=== PATIENT | male | born 1985 | race Caucasian/White ===

== ENCOUNTER 2024-02-18 17:50 | Emergency (ER) | payer MEDICAID, SELFPAY ==
[2024-02-18] VITALS (7 sets, daily range): BP systolic 139–175; BP diastolic 100–127; PULSE 78–111; RESP 17–22; TEMP 36.6–36.8; O2SAT 92–97; BMI 51.5
--- NOTE | 2024-02-18 18:54 | EKG_ITS ---
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
--- NOTE | 2024-02-18 18:55 | PD.EDRME ---
Rapid Medical Screening Exam [facility] Arrival date/time: 02/18/24 17:50 CC: Headache hypertension HPI ongoing for years but worse in the last couple week states he continues to have his doses adjusted by the [facility] but continues to wake up each morning with a bad headache and has sleep apnea. Currently patient denies chest pain shortness of breath or difficulty breathing. Patient is morbidly obese. Chief Complaint: Headache Time Seen by Provider: 02/18/24 18:54 Vital signs: Vital Signs Temperature 98 F 02/18/24 17:58 Pulse Rate 111 H 02/18/24 17:58 Respiratory Rate 19 02/18/24 17:58 Blood Pressure 167/117 H 02/18/24 17:58 Pulse Oximetry (%) 96 02/18/24 17:58 Oxygen Delivery Method Room Air 02/18/24 17:58
[2024-02-18 19:29] LABS: Basophils # (Auto) 0.1 Thou/mm3 (0.0-0.2); Basophils % (Auto) 1 % (0-2.5); Eosinophils # (Auto) 0.2 Thou/mm3 (0.0-0.5); Eosinophils % (Auto) 2 % (0-10); Hematocrit 47.3 % (41.0-53.0); Hemoglobin 16.2 g/dL (13.5-16.0); Immature Granulocytes % (Auto) 1 % (0-0); Immature Granulocytes Auto 0.09 Thou/mm3 (0.00-0.00); Lymphocytes # (Auto) 2.7 Thou/mm3 (1.0-4.8); Lymphocytes % (Auto) 25 % (10-50); Mean Corpuscular HGB Conc 34.2 g/dl (31.0-37.0); Mean Corpuscular Hemoglobin 29.3 pg (25.0-35.0); Mean Corpuscular Volume 86 fL (80-100); Monocytes # (Auto) 0.8 Thou/mm3 (0.0-0.8); Monocytes % (Auto) 8 % (0-12); Neutrophils % (Auto) 64 % (37-80); Nucleated Red Blood Cell % 0 /100 WBC (0); Platelet Count 266 Thou/mm3 (140-440); RDW Standard Deviation 41.1 fL (35.1-43.9); Red Blood Count 5.53 Miln/mm3 (4.50-5.90); White Blood Count 10.9 Thou/mm3 (3.8-10.6)
[2024-02-18 19:49] LABS: Alanine Aminotransferase 34 U/L (10-49); Albumin, Serum 4.7 gm/dL (3.5-5.0); Albumin/Globulin Ratio 1.7 (1.2-2.2); Alkaline Phosphatase 75 U/L (46-116); Anion Gap 7 (7-16); Aspartate Amino Transferase 18 U/L (0-34); BUN/Creatinine Ratio 15 Ratio (12-20); Bilirubin,Total 0.4 mg/dL (0.3-1.2); Blood Urea Nitrogen 15 mg/dL (9-23); Calcium 9.7 mg/dL (8.3-10.6); Calcium (Corrected) 9.7 mg/dL (8.5-10.1); Carbon Dioxide 26.1 mMol/L (20.0-31.0); Chloride 106 mMol/L (98-107); Estimated Creatinine Clearance 159.1 mL/min (>60); Globulin 2.8 gm/dL (2.3-3.5); Glucose 105 mg/dL (74-106); Osmolality,Calculated 278 (275-295); Potassium 3.8 mMol/L (3.4-5.1); Sodium 139 mMol/L (136-145); Total Protein 7.5 gm/dL (5.7-8.2); eGFR > 60 See Note
[2024-02-18 20:05] LABS: Collection Type, Urine Clean Catch
[2024-02-18] MEDS: cloNIDine HCL 0.1 MG TABLET 0.2 MG PO (20:08)
[2024-02-18] MEDS: hydrALAZINE HCL 25 MG TABLET PO (20:09)
--- NOTE | 2024-02-18 20:12 | PC.NURSE ---
called for pt from lobby/outside, no answerx1 @ 2012
--- NOTE | 2024-02-18 20:17 | EDNOTE_ITS ---
ED General RME/HPI General Chief complaint: Headache Stated complaint: THINKS HE MAY HAVE HIGH B/P Time Seen by Provider: 02/18/24 18:54 Arrival date/time: 02/18/24 17:50 CC: Headache hypertension HPI ongoing for several years, the patient that he has worsening in the past week or so states he is on CPAP wakes up in the morning with a bad headache. Patient states his PCP keeps adjusting his medicines but continues to have high blood pressure. Patient denies fever chills chest pain shortness of breath difficulty breathing. RME / HPI RME / HPI narrative: 02/18/24 17:50 CC: Headache hypertension HPI ongoing for years but worse in the last couple week states he continues to have his doses adjusted by the [facility] but continues to wake up each morning with a bad headache and has sleep apnea. Currently patient denies chest pain shortness of breath or difficulty breathing. Patient is morbidly obese. Related Data Previous Rx's ?Medication ?Instructions ?Recorded ibuprofen 800 mg tablet 800 mg PO TID PRN pain #30 tabs 07/20/22 lisinopril 30 mg tablet 30 mg PO QDAY #30 tabs 02/18/24 Allergies Allergy/AdvReac Type Severity Reaction Status Date / Time No Known Allergies Allergy Verified 02/18/24 17:52 Review of Systems Review of Systems Narrative Review of Systems: GEN: No fever, no chills, no weight loss EYES: No discharge, no visual changes, no pain HEENT: No ear pain, no congestion, no sore throat PULM: No shortness of breath, no cough, no congestion CV: No chest pain, no dyspnea on exertion, no palpitations GI: No nausea, no vomiting, no diarrhea, no pain, no constipation : No frequency, no urgency, no dysuria MUSC/SKEL: No joint pain, no back pain SKIN: No rash PSYCH: No hallucinations, no depression HEME/LYMPH: No easy bleeding or bruising tendencies NEURO: No weakness, no headache Past Medical History Social History SMOKING STATUS: Never smoker ED Exam Narrative Physical exam: [General: Morbidly obese not in any acute distress Head normocephalic HEENT: Within acceptable limits Neck is supple nontender Chest equal chest rise nontender to palpation Respiratory: Clear to auscultation no wheezes crackles or rubs CV: Rate rhythm is regular no murmurs rubs or clicks Abdomen is grossly distended secondary to body habitus soft nontender no masses positive bowel sounds all 4 quadrants Back: No CVA tenderness no spinous process tenderness from cervical spine thoracic and lumbar spine Skin: Intact no petechiae rash induration ulceration or crepitus Extremities: Moving all extremities against resistance cap refill less than 2 seconds neurosensory intact Neuro: Awake alert oriented x3 Glascow coma 15 no focal deficits] Course Quality Measures none Orders Category Date Time Status EKG (ED ONLY) *Do not use* NOW Care 02/18/24 18:54 Completed EKG (ED Only) Stat Exams 02/18/24 18:54 Draft CBC Stat Lab 02/18/24 19:04 Completed CMP [Comprehensive Metabolic Panel] Stat Lab 02/18/24 19:04 Completed Drug Screen,Urine Stat Lab 02/18/24 19:55 Completed Urinalysis Stat Lab 02/18/24 19:55 Completed cloNIDine HCL [Catapres] Med 02/18/24 19:57 Discontinued 0.2 mg PO X1 ONE cloNIDine HCL [Catapres] Med 02/18/24 21:02 Discontinued 0.2 mg PO X1 ONE hydrALAZINE HCL [Apresoline] Med 02/18/24 19:57 Discontinued 25 mg PO X1 ONE Vital Signs Vital signs: Vital Signs Temperature 98 F 02/18/24 17:58 Pulse Rate 111 H 02/18/24 17:58 Respiratory Rate 19 02/18/24 17:58 Blood Pressure 167/117 H 02/18/24 17:58 Pulse Oximetry (%) 96 02/18/24 17:58 Oxygen Delivery Method Room Air 02/18/24 17:58 [facility] Patient data External records reviewed:: [facility] previous records Clinical information provided by:: patient Social determinants that could affect healthcare access:: none Patient has the following chronic illnesses:: Hypertension morbid obesity How is presenting disease/condition affected by chronic disease/condition?: e xacerbated by Evaluation data The following diagnostics were reviewed and interpreted by me:: lab results and EKG tracing(s) Lab and/or radiology exams considered but not ordered:: EKG performed at 1900 shows ventricular rate of 106 [place] interval 167 QRS of 85 QTc of [address] segment changes there is a baseline wander in leads I and II. CBC shows no acute leukocytosis anemia thrombocytopenia CMP shows no acute electrolyte imbalances renal impairment transaminitis or T. bili elevation Urine shows 2+ protein levels. Interpretation Summary: Patient has no signs of endorgan damage blood pressure is decreased to 139/100 at this time patient will be discharged home Medications Medications considered but not ordered:: None Medication administrations:: Medication Administration History Discontinued Medications Clonidine (Clonidine Hcl 0.1 Mg Tablet) 0.2 mg PO X1 ONE Stop: 02/18/24 19:58 Last Admin: 02/18/24 20:08 Dose: 0.2 mg Documented By: SF Clonidine (Clonidine Hcl 0.1 Mg Tablet) 0.2 mg PO X1 ONE Stop: 02/18/24 21:03 Last Admin: 02/18/24 21:14 Dose: Not Given Documented By: KD Non-Admin Reason: Discontinued Hydralazine HCl (Hydralazine Hcl 25 Mg Tablet) 25 mg PO X1 ONE Stop: 02/18/24 19:58 Last Admin: 02/18/24 20:09 Dose: 25 mg Documented By: AC None Consultations Consultation(s) initiated? (list below): No Diagnosis Differential Diagnosis ED Complaint MDM: Hypertension hypertensive urgency hypertensive emergency Most likely diagnosis given after review of the tests above:: Hypertension morbid obesity Admission Indicated Admission indicated?: not indicated Explain why admission is indicated or not indicated:: Stable for outpatient follow-up Admission Request Was there a request for admission?: No Disposition Plan Disposition Plan: Discharge Discharge Attestation Discharge Attestation: The patient and all family members were given an opportunity to ask questions and understood the discharge instructions. Discharge instructions specifically effects, indications for sooner follow up or return to the emergency department, and the expected course of current diagnosis. Patient condition: Stable Medical Decision Making Differential Diagnosis Differential Diagnosis: Hypertension hypertensive urgency hypertensive emergency Lab Data 02/18/24 19:04 02/18/24 19:04 Labs: Lab Results 02/18/24 02/18/24 Range/Units 19:04 19:55 WBC 10.9 H (3.8-10.6) Thou/mm3 RBC 5.53 (4.50-5.90) Miln/mm3 Hgb 16.2 H (13.5-16.0) g/dL Hct 47.3 (41.0-53.0) % MCV 86 (80-100) fL MCH 29.3 (25.0-35.0) pg MCHC 34.2 (31.0-37.0) g/dl RDW Std Deviation 41.1 (35.1-43.9) fL Plt Count 266 (140-440) Thou/mm3 Neut % (Auto) 64 (37-80) % Lymph % (Auto) 25 (10-50) % [place] % (Auto) 8 (0-12) % Eos % (Auto) 2 (0-10) % Baso % (Auto) 1 (0-2.5) % Neut # (Auto) 7.0 (1.8-7.7) Thou/mm3 Lymph # (Auto) 2.7 (1.0-4.8) Thou/mm3 [place] # (Auto) 0.8 (0.0-0.8) Thou/mm3 Eos # (Auto) 0.2 (0.0-0.5) Thou/mm3 Baso # (Auto) 0.1 (0.0-0.2) Thou/mm3 Immature Gran # (Auto) 0.09 H (0.00-0.00) Thou/mm3 Absolute Nucleated RBC 0.00 (0.00-0.00) Thou/mm3 Immature Gran % 1 H (0-0) % Nucleated RBC % 0 (0) /100 WBC Sodium 139 (136-145) mMol/L Potassium 3.8 (3.4-5.1) mMol/L Chloride 106 (98-107) mMol/L Carbon Dioxide 26.1 (20.0-31.0) mMol/L Anion Gap 7 (7-16) BUN 15 (9-23) mg/dL Creatinine 1.0 (0.6-1.3) mg/dL Estim Creat Clear Calc 159.1 (>60) mL/min eGFR > 60 (60 - ) See Note BUN/Creatinine Ratio 15 (12-20) Ratio Glucose 105 (74-106) mg/dL Calculated Osmolality 278 (275-295) Calcium 9.7 (8.3-10.6) mg/dL Corrected Calcium 9.7 (8.5-10.1) mg/dL Total Bilirubin 0.4 (0.3-1.2) mg/dL AST 18 (0-34) U/L ALT 34 (10-49) U/L Alkaline Phosphatase 75 (46-116) U/L Total Protein 7.5 (5.7-8.2) gm/dL Albumin 4.7 (3.5-5.0) gm/dL Globulin 2.8 (2.3-3.5) gm/dL Albumin/Globulin Ratio 1.7 (1.2-2.2) Ur Collection Type Clean Catch Urine Color Yellow (Lt Yel-Yel) Urine Clarity Clear (Clear/Hazy) Urine pH 6.0 (5.0-7.0) Ur Specific [place] 1.032 (1.001-1.035) Urine Protein 1+ A (Neg - Trace) Urine Glucose (UA) Negative (Negative) Urine Ketones Negative (Negative) Urine Blood 1+ A (Negative) Urine Nitrite Negative (Negative) Urine Bilirubin Negative (Negative) Urine Urobilinogen (Auto) Negative (0.0-1.0) mg/dL Ur Leukocyte Esterase Positive (Negative) Urine RBC 6 H (0-3) /hpf Urine WBC 6 H (0-5) /hpf Ur Squamous Epith Cells 1 (0-5) /hpf Urine Bacteria None (None) Urine Opiates Screen Negative (Negative) Urine Fentanyl Screen Negative (Negative) Ur Barbiturates Screen Negative (Negative) U Amphetamin/Meth Scrn Negative (Negative) U Benzodiazepines Scrn Negative (Negative) U Cocaine Metab Screen Negative (Negative) U Marijuana (THC) Screen Negative (Negative) Discharge Plan Plan Patient Disposition: HOME (Self Care) Patient condition on transfer: Stable Prescriptions/Referrals Prescriptions/Med Rec: New lisinopril 30 mg tablet 30 mg PO QDAY Qty: 30 0RF No Action ibuprofen 800 mg tablet 800 mg PO TID PRN (Reason: pain) Qty: 30 0RF Referrals: Jamison Gould MD [Primary Care Provider] - In 1 week Problem List Clinical Impression: Hypertension Patient/Caregiver Discharge Instructions Education Materials: Blood Pressure Check Steps Additional Instructions: Take the medication as prescribed follow-up with your primary care provider for further adjustments on your hypertension medications you may want to consider referral to [facility] for more complex aggressive hypertension management. Print Language: Amharic Stand Alone Forms: Cynthia Award Info., Patient Portal Info Letter, Work/School Release PA/SUPERVISOR ROUGH END Supervising Physician PA/SUPERVISOR ROUGH END Supervising Physician: Vicente Shoemaker ENP
[2024-02-18 20:30] LABS: Bilirubin,Urine Negative (Negative); Blood,Urine 1+ (Negative); Clarity,Urine Clear (Clear/Hazy); Color,Urine Yellow (Lt Yel-Yel); Glucose, Urine Negative (Negative); Ketones,Urine Negative (Negative); Leukocyte Esterase,Urine Positive (Negative); Nitrite,Urine Negative (Negative); Protein,Urine 1+ (Neg - Trace); RBC,Urine 6 /hpf (0-3); Specific Gravity,Urine 1.032 (1.001-1.035); Squamous Epithelial Cell,Urine 1 /hpf (0-5); Urobilinogen,Urine Negative mg/dL (0.0-1.0); WBC,Urine 6 /hpf (0-5)
[2024-02-18 20:40] LABS: Amphetamine/Methamp Scrn,U Negative (Negative); Barbiturate Screen,Urine Negative (Negative); Benzodiazepines Screen,Urine Negative (Negative); Benzoylecgonine Screen, Ur Negative (Negative); Fentanyl Screen,Urine Negative (Negative); Opiate Screen,Urine Negative (Negative); THC Screen,Urine Negative (Negative)
== END 2024-02-18 22:03 | disposition home or self-care (01) ==
PROVIDERS: Registered Nurse General Practice; Emergency Provider Emergency Medicine; PCP Family Medicine
DX: I10 Essential (primary) hypertension (principal); R00.0 Tachycardia, unspecified
CPT/HCPCS: 36415; 80053; 80307; 81001; 85025; 93005; 99283; A9270

== ENCOUNTER 2024-04-15 01:16 | Emergency (ER) | payer MEDICAID, SELFPAY ==
[2024-04-15 01:43] VITALS: BP 167/120; PULSE 98; RESP 20; TEMP 36.6; O2SAT 99
[2024-04-15 01:44] VITALS: BMI 51.5
--- NOTE | 2024-04-15 01:51 | XR_ITS ---
Examination: Venous duplex lower extremity sonogram, bilateral. Date and time of exam: April 15, 2024 0207 hrs. Indications: Bilateral leg swelling and pain beginning 3 days ago Technique: Multiple sonographic images of the deep venous system have been obtained. B-mode/2-D grayscale imaging of vascular structures and Doppler spectral analysis (waveforms) and color performed Both legs are examined. Findings: Right lower extremity deep venous system demonstrates no convincing findings of deep vein thrombus Positive for nonocclusive thrombus in the distal left superficial femoral vein which is noncompressive with reduced color flow Impression: Positive for nonocclusive thrombus in the left distal superficial femoral vein
--- NOTE | 2024-04-15 01:52 | PD.EDRME ---
Rapid Medical Screening Exam RME Arrival date/time: 04/15/24 01:16 38-year-old male past medical history of hypertension and according to patient takes water pill presents emergency department complaining of bilateral lower extremity edema and pain that starts at his feet and travels up to his calf and thigh. Chief Complaint: Extremity Problem,Nontraumatic Time Seen by Provider: 04/15/24 01:18 Vital signs: Vital Signs Temperature 97.8 F 04/15/24 01:43 Pulse Rate 98 04/15/24 01:43 Respiratory Rate 20 04/15/24 01:43 Blood Pressure 167/120 H 04/15/24 01:43 Pulse Oximetry (%) 99 04/15/24 01:43 Oxygen Delivery Method Room Air 04/15/24 01:43 Vital signs reviewed by provider: Yes
[2024-04-15 02:43] VITALS: BP 167/120; PULSE 98
[2024-04-15] MEDS: hydrALAZINE HCL 25 MG TABLET PO (02:43)
[2024-04-15] MEDS: ACETAMINOPHEN 500 MG TABLET 1000 MG PO (02:43)
[2024-04-15 03:50] VITALS: BP 162/111; BP 168/105; PULSE 96
[2024-04-15 04:07] VITALS: BP 168/105; PULSE 96
[2024-04-15] MEDS: cloNIDine HCL 0.1 MG TABLET 0.2 MG PO (04:07)
--- NOTE | 2024-04-15 04:15 | PRELIM_ITS ---
Bilateral lower extremity venous Doppler ultrasound with wave Doppler spectral analysis. April 15, 2024 at 0207 hours Clinical history: Rule out DVT. Technique: Duplex scan of the bilateral lower extr emity deep venous systems was performed utilizing 2D grayscale imaging, Doppler spectral analysis and color flow Doppler and with compression. Comparison: No prior study is available for comparison. Fi ndings:The evaluation is limited due to body habitus. Cr scale, color flow and spectral Doppler sameer luation of the lower extremity deep veins was performed.Right: The common femoral, superficial femora l and popliteal veins are patent and compressible. Normal respiratory variation is noted. The calf ve ins to the extent visualized are patent. There is no evidence of occlusive or nonocclusive thrombus. The great saphenous vein is patent at the level of the saphenofemoral junction.Left: There is nonoccl usive deep vein thrombosis in the left distal superficial femoral vein. The common femoral, proximal /mid superficial femoral and popliteal veins are patent and compressible. The posterior tibial and pe roneal veins are patent. The great saphenous vein is patent at the level of the saphenofemoral juncti on.Impression:Limited evaluation as described. Nonocclusive deep vein thrombosis in the left distal s uperficial femoral vein.No sonographic evidence of deep venous thrombosis in the right lower extremit y.Discussion Details: Results verbally communicated to : John Law, Nurse Practitioner at 04:09 AM 04/15/2024 Report Electronically Signed By: Alex Tejeda 04/15/2024 4:14:54 AM [EST]
[2024-04-15 04:58] LABS: Basophils # (Auto) 0.1 Thou/mm3 (0.0-0.2); Basophils % (Auto) 1 % (0-2.5); Eosinophils # (Auto) 0.4 Thou/mm3 (0.0-0.5); Eosinophils % (Auto) 4 % (0-10); Hematocrit 43.2 % (41.0-53.0); Hemoglobin 14.5 g/dL (13.5-16.0); Immature Granulocytes % (Auto) 0 % (0-0); Immature Granulocytes Auto 0.03 Thou/mm3 (0.00-0.00); Lymphocytes # (Auto) 3.1 Thou/mm3 (1.0-4.8); Lymphocytes % (Auto) 31 % (10-50); Mean Corpuscular HGB Conc 33.6 g/dl (31.0-37.0); Mean Corpuscular Hemoglobin 28.9 pg (25.0-35.0); Mean Corpuscular Volume 86 fL (80-100); Monocytes # (Auto) 0.8 Thou/mm3 (0.0-0.8); Monocytes % (Auto) 8 % (0-12); Neutrophils # (Auto) 5.7 Thou/mm3 (1.8-7.7); Neutrophils % (Auto) 57 % (37-80); Nucleated Red Blood Cell % 0 /100 WBC (0); Platelet Count 234 Thou/mm3 (140-440); RDW Standard Deviation 42.9 fL (35.1-43.9); Red Blood Count 5.01 Miln/mm3 (4.50-5.90); White Blood Count 10.1 Thou/mm3 (3.8-10.6)
[2024-04-15 05:07] LABS: INR 1.1 (0.9-1.3); Prothrombin Time 11.5 Seconds (9.0-12.2)
[2024-04-15 05:13] LABS: Alanine Aminotransferase 52 U/L (10-49); Albumin, Serum 4.5 gm/dL (3.5-5.0); Albumin/Globulin Ratio 1.7 (1.2-2.2); Alkaline Phosphatase 80 U/L (46-116); Anion Gap 8 (7-16); Aspartate Amino Transferase 35 U/L (0-34); BUN/Creatinine Ratio 11 Ratio (12-20); Bilirubin,Total 0.6 mg/dL (0.3-1.2); Blood Urea Nitrogen 13 mg/dL (9-23); Calcium 9.3 mg/dL (8.3-10.6); Calcium (Corrected) 9.3 mg/dL (8.5-10.1); Carbon Dioxide 26.6 mMol/L (20.0-31.0); Chloride 106 mMol/L (98-107); Creatinine (Component) 1.2 mg/dL (0.6-1.3); Estimated Creatinine Clearance 132.6 mL/min (>60); Globulin 2.7 gm/dL (2.3-3.5); Glucose 124 mg/dL (74-106); Osmolality,Calculated 282 (275-295); Potassium 3.9 mMol/L (3.4-5.1); Sodium 141 mMol/L (136-145); Total Protein 7.2 gm/dL (5.7-8.2); eGFR > 60 See Note
--- NOTE | 2024-04-15 05:14 | EDNOTE_ITS ---
ED Extremity Problem RME/HPI General Chief complaint: Extremity Problem,Nontraumatic Stated complaint: Legs/Feet Swollen Leg Pain x3 days Time Seen by Provider: 04/15/24 01:18 Source: patient Arrival date/time: 04/15/24 01:16 38-year-old male past medical history of hypertension and according to patient takes water pill presents emergency department complaining of bilateral lower extremity edema and pain that starts at his feet and travels up to his calf and thigh that has worsened this last 3 days. Patient denies any fever, chills, recent travel, prolonged immobilization, recent surgery, rectal bleeding, hematuria, hematemesis, or any other associated symptom. Mode of arrival: ambulatory Limitations: no limitations RME / HPI RME / HPI Narrative: 04/15/24 01:16 38-year-old male past medical history of hypertension and according to patient takes water pill presents emergency department complaining of bilateral lower extremity edema and pain that starts at his feet and travels up to his calf and thigh. Related Data Previous Rx's ?Medication ?Instructions ?Recorded ibuprofen 800 mg tablet 800 mg PO TID PRN pain #30 tabs 07/20/22 lisinopril 30 mg tablet 30 mg PO QDAY #30 tabs 02/18/24 apixaban 5 mg tablet 10 mg (2 x 5 mg) PO BID 7 days #30 04/15/24 tabs Allergies Allergy/AdvReac Type Severity Reaction Status Date / Time No Known Allergies Allergy Verified 02/18/24 17:52 Review of Systems Review of Systems Systems Reviewed: All systems reviewed, normal except as documented Constitutional Constitutional: Denies body ache(s), Denies chills and Denies fever(s) Eyes Eyes: Denies change in vision ENT Ears, Nose, Mouth, and Throat: Denies disequilibrium, Denies dizziness, Denies sore throat and Denies vertigo Cardiovascular Cardiovascular: Denies chest pain, Denies dyspnea and Reports leg edema Respiratory Respiratory: Denies chest congestion, Denies cough and Denies dyspnea Gastrointestinal Gastrointestinal: Denies abdominal pain, Denies nausea and Denies vomiting Musculoskeletal Musculoskeletal: Denies abnormal gait, Denies arthralgias and Reports radiating pain into limb Integumentary/Breasts Skin/Breast: Denies erythema, Denies rash and Denies wounds Neurologic Neurologic: Denies abnormal gait, Denies disequilibrium, Denies dizziness and Denies vertigo Past Medical History Past Medical History CARDIAC: Negative Congestive Heart Failure RESPIRATORY: Negative Chronic Obstructive Pulmonary Disease (COPD) GENITOURINARY: Negative Renal Disease ENDOCRINE: Negative Diabetes Mellitus Type 1 or Diabetes Mellitus Type 2 Social History SMOKING STATUS: Former smoker ED Exam General Limitations: Present no limitations General appearance: Present alert and in no apparent distress Head Head exam: Present atraumatic Eye Eye exam: Present normal appearance, PERRL and EOMI ENT ENT exam: Present normal exam, normal oropharynx and mucous membranes moist Neck Neck exam: Present normal inspection, full ROM and trachea midline Chest Chest inspection: Present normal inspection and symmetric chest wall rise Respiratory Respiratory exam: Present normal lung sounds bilaterally Cardiovascular Cardiovascular exam: Present regular rate, normal rhythm and normal heart sounds Abdominal Exam Abdominal exam: Present soft and normal bowel sounds Extremities Exam Extremities exam: Present normal inspection and full ROM Expanded Lower Extremity Exam Leg image: 2 1. 2+ pitting edema 2. 1+ pitting edema Back Exam Back exam: Present normal inspection and full ROM Neurological Exam Neurological exam: Present alert, oriented X3 and CN II-XII intact Psychiatric Psychiatric exam: Present normal affect and normal mood Skin Skin exam: Present warm, dry, intact and normal color Course Quality Measures none Orders Category Date Time Status US venous doppler LE BI Stat Exams 04/15/24 01:51 Taken CBC Stat Lab 04/15/24 04:48 Completed CMP [Comprehensive Metabolic Panel] Stat Lab 04/15/24 04:48 Completed PT [Prothrombin Time with INR] Stat Lab 04/15/24 04:48 Completed PTT [Partial Thromboplastin Time] Stat Lab 04/15/24 04:48 Completed Acetaminophen Tab [Tylenol ES Tab] Med 04/15/24 01:55 Discontinued 1,000 mg PO X1 ONE cloNIDine HCL [Catapres] Med 04/15/24 03:59 Discontinued 0.2 mg PO X1 ONE hydrALAZINE HCL [Apresoline] Med 04/15/24 01:52 Discontinued 25 mg PO X1 ONE Vital Signs Vital signs: Vital Signs Temperature 97.8 F 04/15/24 01:43 Pulse Rate 98 04/15/24 01:43 Respiratory Rate 20 04/15/24 01:43 Blood Pressure 167/120 H 04/15/24 01:43 Pulse Oximetry (%) 99 04/15/24 01:43 Oxygen Delivery Method Room Air 04/15/24 01:43 99% room air within normal limits Extremity Problem MDM Narrative MDM Narrative:: 38-year-old male past medical history of hypertension and according to patient takes water pill presents emergency department complaining of bilateral lower extremity edema and pain that starts at his feet and travels up to his calf and thigh that has worsened this last 3 days. Patient denies any fever, chills, recent travel, prolonged immobilization, recent surgery, rectal bleeding, hematuria, hematemesis, or any other associated symptom. CBC was unremarkable for any leukocytosis or anemia. Coagulation studies within normal limits. CMP was unremarkable for any elevated LFTs or elevated BUN and creatinine. Ultrasound bilateral lower extremities impression nonocclusive deep vein thrombosis in left distal superficial femoral vein. No sonographic evidence of deep venous thrombosis in right lower extremity. Patient's previous ultrasounds from previous visits were reviewed with no previous history of DVT. Patient will be treated for acute DVT with Eliquis and was given strict instructions to have close follow-up with primary care provider for refill of Eliquis and continued management. Patient verbalized understanding of instructions. Baseline coagulation studies, kidney function, and liver function studies obtained. Patient data External records reviewed:: [facility] previous records Clinical information provided by:: patient Social determinants that could affect healthcare access:: none Patient has the following chronic illnesses:: See chart How is presenting disease/condition affected by chronic disease/condition?: u neffected by Evaluation data The following diagnostics were reviewed and interpreted by me:: lab results and radiology exam(s) Lab and/or radiology exams considered but not ordered:: Ordered Interpretation Summary: Interpreted by me Medications / Prescriptions Medications or Prescriptions considered but not ordered:: Ordered Medication administrations:: Medication Administration History Discontinued Medications Acetaminophen (Acetaminophen 500 Mg Tablet) 1,000 mg PO X1 ONE Stop: 04/15/24 01:56 Last Admin: 04/15/24 02:43 Dose: 1,000 mg Documented By: RADHAL Clonidine (Clonidine Hcl 0.1 Mg Tablet) 0.2 mg PO X1 ONE Stop: 04/15/24 04:00 Last Admin: 04/15/24 04:07 Dose: 0.2 mg Documented By: MARK Hydralazine HCl (Hydralazine Hcl 25 Mg Tablet) 25 mg PO X1 ONE Stop: 04/15/24 01:53 Last Admin: 04/15/24 02:43 Dose: 25 mg Documented By: CVL Given Consultations Consultation(s) initiated? (list below): No Diagnosis Extremity Problem Differential Diagnosis: lower extremity edema and deep vein thrombosis of lower extremity Most likely diagnosis given after review of the tests above:: Deep vein thrombosis of lower extremity Admission Indicated Admission indicated?: not indicated Admission Request Was there a request for admission?: No Disposition Plan Disposition Plan: Discharge Discharge Attestation Discharge Attestation: The patient and all family members were given an opportunity to ask questions and understood the discharge instructions. Discharge instructions specifically effects, indications for sooner follow up or return to the emergency department, and the expected course of current diagnosis. Patient condition: Stable Discharge Plan Plan Patient Disposition: HOME (Self Care) Disposition Comment: Stable Prescriptions/Referrals Prescriptions/Med Rec: New apixaban 5 mg tablet 10 mg PO BID 7 Days Qty: 30 0RF Rx Instructions: Take 10 mg orally twice a day for 7 days, then 5 mg orally twice a day. No Action ibuprofen 800 mg tablet 800 mg PO TID PRN (Reason: pain) Qty: 30 0RF lisinopril 30 mg tablet 30 mg PO QDAY Qty: 30 0RF Referrals: Jamison Gould MD [Primary Care Provider] - In 1 week Problem List Clinical Impression: Deep vein thrombosis of lower extremity Patient/Caregiver Discharge Instructions Discharge Activity: activity as tolerated Education Materials: Low-Salt Choices, DVT Dc, ED Deep Vein Thrombosis (DVT) Additional Instructions: You have a left lower leg deep vein thrombosis. Take medication as prescribed. You have been prescribed Eliquis 10 mg orally twice a day for 7 days, then 5 mg orally twice a day. You will need close follow-up with your primary care provider for refill of Eliquis and management. Monitor blood pressure readings at home and take diary with recordings to primary care provider on follow-up for possible increase in blood pressure medication. Return immediately to the emergency department for any rectal bleeding, vomiting blood, or any worsening symptoms. Print Language: Polish Stand Alone Forms: [employer] Award Info., Work/School Release, Patient Portal Info Letter PA/KAYLIE Supervising Physician MAYA/KAYLIE Supervising Physician: Dr. Pappas
[2024-04-15 05:47] VITALS: BP 176/93; PULSE 90; RESP 16; TEMP 36.6; O2SAT 99
== END 2024-04-15 05:48 | disposition home or self-care (01) ==
PROVIDERS: Emergency Provider Emergency Medicine; PCP Family Medicine
DX: I82.412 Acute embolism and thrombosis of left femoral vein (principal); I10 Essential (primary) hypertension
CPT/HCPCS: 36415; 80053; 85025; 85610; 85730; 93970; 99284; A9270

== ENCOUNTER 2024-05-17 19:21 | Emergency (ER) | payer MEDICAID, SELFPAY ==
[2024-05-17 19:21] VITALS: BMI 50.2
[2024-05-17 19:28] VITALS: BP 132/93; PULSE 99; RESP 19; TEMP 36.8; O2SAT 97
--- NOTE | 2024-05-17 19:37 | XR_ITS ---
Examination: CT abdomen with intravenous contrast CT pelvis with intravenous contrast 2-D coronal reconstructions 2-D sagittal reconstructions Date and time of exam:May 18, 2024 0032 hrs. Comparison: October 14, 2022 Indications: Onset abdominal pain beginning 4 days ago. CTDI: vol (mGy) 20.8 DLP: (mGycm) 1408 Technique: Multiple axial sections of the abdomen and pelvis have been obtained. 64 slice high-resolution scanner used. 3 mm axial sections have been obtained, post intravenous injection 60 cc [id number] 2-D sagittal, coronal reconstructions obtained. Low dose protocols were performed. One or more of the following dose reduction techniques were used; automated exposure control, adjustment of the mA and/or KV according to patient size, use of iterative reconstruction technique. Findings: Diffuse fatty infiltration throughout the liver, no focal liver or splenic lesions Absent gallbladder No pancreatic or adrenal mass No renal or ureteral calculi. Mildly fluid distended colon and small bowel No pericecal inflammatory change No bowel obstruction Contracted urinary bladder No prostatomegaly Impression: Mild colonic small bowel ileus
--- NOTE | 2024-05-17 19:37 | EKG_ITS ---
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
--- NOTE | 2024-05-17 19:39 | PD.EDNV ---
Nausea/Vomit./Diarrhea-E/HPI General Chief complaint: Nausea/Vomiting/Diarrhea Stated complaint: ABD PAIN X4DAYS Time Seen by Provider: 05/17/24 19:32 Arrival date/time: 05/17/24 19:21 RME / HPI RME / HPI Narrative: 38-year-old male patient with significant history of hypertension, status postcholecystectomy in the past, came in for evaluation regarding upper abdominal pain. Onset of symptoms for the last 3 days as diarrhea, upper abdominal pain, burping a lot, nauseous, severity moderate. Patient denies any blood in the diarrhea. Denies any other complaints. No medications taken prior to arrival. Related Data Previous Rx's ?Medication ?Instructions ?Recorded ibuprofen 800 mg tablet 800 mg PO TID PRN pain #30 tabs 07/20/22 lisinopril 30 mg tablet 30 mg PO QDAY #30 tabs 02/18/24 Allergies Allergy/AdvReac Type Severity Reaction Status Date / Time No Known Allergies Allergy Verified 02/18/24 17:52 Review of Systems Review of Systems Narrative Review of Systems: Review of system reviewed and within normal limits except mentioned in HPI ED Exam Narrative Physical exam: VITAL SIGNS: Reviewed. GENERAL APPEARANCE: Alert and interactive, follows commands, no acute distress, HEAD AND FACE: Non-traumatic. ENT: PERRL, pink conjunctivitis, eyelid no trauma, Mucous membrane moist. NECK: Supple, nontender, no nuchal rigidity. CHEST: No tenderness, no crepitus, no paradoxical movement, no retractions. LUNGS: Clear, well ventilated, symmetric, no rales, no wheezing, no ronchi, no stridor, good breath sounds bilaterally. HEART: Regular rate, regular rhythm, no murmur, no gallops. ABDOMEN: Soft, positive bowel sounds, nondistended, no guarding, epigastric tenderness no rebound, no masses, RECTAL: Deferred. GENITAL: Deferred. NEUROLOGICAL: Gross motor function intact sensory function intact, Appropriate for age. MUSCULOSKELETAL: low back nontender, full range of motion. EXTREMITIES: Nontender, full range of motion. SKIN: Color pink, dry, no rash, no lacerations, no abrasions, no contusions. LYMPHATICS: Deferred. Course Orders Category Date Time Status CT Screening NOW Care 05/17/24 19:37 Active EKG (ED ONLY) *Do not use* NOW Care 05/17/24 19:[address] abdomen pelvis w con Stat Exams 05/17/24 19:37 Ordered EKG (ED Only) Stat Exams 05/17/24 19:37 Ordered CBC Stat Lab 05/17/24 19:37 Ordered Comprehensive Metabolic Panel Stat Lab 05/17/24 19:37 Ordered Drug Screen,Urine Stat Lab 05/17/24 19:37 Ordered Lipase Stat Lab 05/17/24 19:37 Ordered Partial Thromboplastin Time Stat Lab 05/17/24 19:37 Ordered Prothrombin Time with INR Stat Lab 05/17/24 19:37 Ordered UA, C/S IF [Urinalysis, C/S if Indicated] Stat Lab 05/17/24 19:37 Ordered Famotidine Inj [Pepcid Inj] Med 05/17/24 19:37 Once 20 mg IVP X1 ONE Ketorolac Inj [Toradol Inj] Med 05/17/24 19:38 Once 30 mg IVP X1 ONE Metoclopramide Inj [Reglan Inj] Med 05/17/24 19:37 Once 10 mg IVP X1 ONE Sodium Chloride 0.9% 1000 ml [Ns] 1,000 ml Med 05/17/24 19:38 Active IV 999 mls/hr Vital Signs Vital signs: Vital Signs Temperature 98.3 F 05/17/24 19:28 Pulse Rate 99 05/17/24 19:28 Respiratory Rate 19 05/17/24 19:28 Blood Pressure 132/93 H 05/17/24 19:28 Pulse Oximetry (%) 97 05/17/24 19:28 Oxygen Delivery Method Room Air 05/17/24 19:28 Nausea/Vomiting/Diarrhea Medications / Prescriptions Medication administrations:: Medication Administration History Sodium Chloride (Ns) 1,000 mls @ 999 mls/hr IV .Q1H1M ONE Stop: 05/17/24 20:38 Metoclopramide HCl (Metoclopramide Inj 5 Mg/Ml Vial 2 Ml) 10 mg IVP X1 ONE; Protocol Stop: 05/17/24 19:38 Discontinued Medications Famotidine (Famotidine Inj 10 Mg/Ml Vial 2 Ml) 20 mg IVP X1 ONE Stop: 05/17/24 19:38 Ketorolac Tromethamine (Ketorolac Inj 30 Mg/Ml Vial) 30 mg IVP X1 ONE Stop: 05/17/24 19:39 Discharge Plan Prescriptions/Referrals Prescriptions/Med Rec: No Action ibuprofen 800 mg tablet 800 mg PO TID PRN (Reason: pain) Qty: 30 0RF lisinopril 30 mg tablet 30 mg PO QDAY Qty: 30 0RF Patient/Caregiver Discharge Instructions Print Language: Vietnamese
[2024-05-17 20:01] LABS: Basophils # (Auto) 0.1 Thou/mm3 (0.0-0.2); Basophils % (Auto) 1 % (0-2.5); Eosinophils # (Auto) 0.4 Thou/mm3 (0.0-0.5); Eosinophils % (Auto) 4 % (0-10); Hematocrit 45.5 % (41.0-53.0); Hemoglobin 15.6 g/dL (13.5-16.0); Immature Granulocytes % (Auto) 0 % (0-0); Immature Granulocytes Auto 0.03 Thou/mm3 (0.00-0.00); Lymphocytes # (Auto) 2.1 Thou/mm3 (1.0-4.8); Lymphocytes % (Auto) 20 % (10-50); Mean Corpuscular HGB Conc 34.3 g/dl (31.0-37.0); Mean Corpuscular Hemoglobin 29.1 pg (25.0-35.0); Mean Corpuscular Volume 85 fL (80-100); Monocytes # (Auto) 0.7 Thou/mm3 (0.0-0.8); Monocytes % (Auto) 6 % (0-12); Neutrophils # (Auto) 7.4 Thou/mm3 (1.8-7.7); Neutrophils % (Auto) 69 % (37-80); Nucleated Red Blood Cell % 0 /100 WBC (0); Platelet Count 285 Thou/mm3 (140-440); RDW Standard Deviation 44.5 fL (35.1-43.9); Red Blood Count 5.37 Miln/mm3 (4.50-5.90); White Blood Count 10.7 Thou/mm3 (3.8-10.6)
[2024-05-17 20:16] LABS: INR 1.1 (0.9-1.3); Partial Thromboplastin Time 27.9 Seconds (22.0-36.0); Prothrombin Time 11.8 Seconds (9.0-12.2)
[2024-05-17 20:20] LABS: Alanine Aminotransferase 58 U/L (10-49); Albumin, Serum 4.7 gm/dL (3.5-5.0); Albumin/Globulin Ratio 1.7 (1.2-2.2); Alkaline Phosphatase 91 U/L (46-116); Anion Gap 8 (7-16); Aspartate Amino Transferase 24 U/L (0-34); BUN/Creatinine Ratio 10 Ratio (12-20); Bilirubin,Total 0.8 mg/dL (0.3-1.2); Blood Urea Nitrogen 11 mg/dL (9-23); Carbon Dioxide 24.3 mMol/L (20.0-31.0); Chloride 107 mMol/L (98-107); Creatinine (Component) 1.1 mg/dL (0.6-1.3); Estimated Creatinine Clearance 142.3 mL/min (>60); Globulin 2.7 gm/dL (2.3-3.5); Glucose 92 mg/dL (74-106); Lipase 29 U/L (12-53); Osmolality,Calculated 276 (275-295); Potassium 3.7 mMol/L (3.4-5.1); Sodium 139 mMol/L (136-145); Total Protein 7.4 gm/dL (5.7-8.2); eGFR > 60 See Note
[2024-05-17 20:52] LABS: Collection Type, Urine Clean Catch
[2024-05-17 21:18] LABS: Bacteria,Urine Rare; Bilirubin,Urine Negative (Negative); Blood,Urine Trace (Negative); Clarity,Urine Turbid (Clear/Hazy); Color,Urine Yellow (Lt Yel-Yel); Glucose, Urine Negative (Negative); Ketones,Urine Trace (Negative); Leukocyte Esterase,Urine Positive (Negative); Nitrite,Urine Negative (Negative); PH,Urine 6.5 (5.0-7.0); Protein,Urine 2+ (Neg - Trace); RBC,Urine 14 /hpf (0-3); Specific Gravity,Urine 1.027 (1.001-1.035); Squamous Epithelial Cell,Urine 2 /hpf (0-5); Urobilinogen,Urine Negative mg/dL (0.0-1.0); WBC,Urine 12 /hpf (0-5)
[2024-05-17 21:23] LABS: Culture Indicated,Urine Yes; Sperm,Urine Present
[2024-05-17 22:40] LABS: Amphetamine/Methamp Scrn,U Positive (Negative); Barbiturate Screen,Urine Negative (Negative); Benzodiazepines Screen,Urine Negative (Negative); Benzoylecgonine Screen, Ur Negative (Negative); Fentanyl Screen,Urine Negative (Negative); Opiate Screen,Urine Negative (Negative); THC Screen,Urine Negative (Negative)
--- NOTE | 2024-05-17 22:41 | PD.EDRME ---
Rapid Medical Screening Exam [facility] Arrival date/time: 05/17/24 19:21 38-year-old male patient with significant history of hypertension, status postcholecystectomy in the past, came in for evaluation regarding upper abdominal pain. Onset of symptoms for the last 3 days as diarrhea, upper abdominal pain, burping a lot, nauseous, severity moderate. Patient denies any blood in the diarrhea. Denies any other complaints. No medications taken prior to arrival. Chief Complaint: Nausea/Vomiting/Diarrhea Time Seen by Provider: 05/17/24 19:32 Vital signs: Vital Signs Temperature 98.3 F 05/17/24 19:28 Pulse Rate 99 05/17/24 19:28 Respiratory Rate 19 05/17/24 19:28 Blood Pressure 132/93 H 05/17/24 19:28 Pulse Oximetry (%) 97 05/17/24 19:28 Oxygen Delivery Method Room Air 05/17/24 19:28 [facility] Narrative: 38-year-old male patient with significant history of hypertension, status postcholecystectomy in the past, came in for evaluation regarding upper abdominal pain. Onset of symptoms for the last 3 days as diarrhea, upper abdominal pain, burping a lot, nauseous, severity moderate. Patient denies any blood in the diarrhea. Denies any other complaints. No medications taken prior to arrival.
--- NOTE | 2024-05-17 23:24 | EDNOTE_ITS ---
Nausea/Vomit./Diarrhea-RME/HPI General Chief complaint: Nausea/Vomiting/Diarrhea Stated complaint: ABD PAIN X4DAYS Time Seen by Provider: 05/17/24 19:32 Arrival date/time: 05/17/24 19:21 38M with history of HTN, cholecystectomy and DVT (taking meds) presents to ED with several days of N/V, gen ab pain/cramping, and non-bloody diarrhea. Patient denies CP and SOB. Limitations: no limitations RME / HPI RME / HPI Narrative: 38-year-old male patient with significant history of hypertension, status postcholecystectomy in the past, came in for evaluation regarding upper abdominal pain. Onset of symptoms for the last 3 days as diarrhea, upper abdominal pain, burping a lot, nauseous, severity moderate. Patient denies any blood in the diarrhea. Denies any other complaints. No medications taken prior to arrival. Related Data Previous Rx's ?Medication ?Instructions ?Recorded ibuprofen 800 mg tablet 800 mg PO TID PRN pain #30 t abs 07/20/22 lisinopril 30 mg tablet 30 mg PO QDAY #30 tabs 02/17 ondansetron 4 mg disintegrating 4 mg PO Q6H PRN nausea and 05/18/24 tablet vomiting #30 tabs Allergies Allergy/AdvReac Type Severity Reaction Status Date / Time No Known Allergies Allergy Verified 02/18/24 17:52 Review of Systems Review of Systems Systems Reviewed: All systems reviewed, normal except as documented Constitutional Constitutional: Reports system reviewed and no additional complaints, except as documented, Denies fever(s) and Denies headache(s) ENT Ears, Nose, Mouth, and Throat: Denies disequilibrium and Denies headache(s) Cardiovascular Cardiovascular: Reports system reviewed and no additional complaints, except as documented, Denies chest pain and Denies dyspnea Respiratory Respiratory: Reports system reviewed and no additional complaints, except as documented, Denies cough and Denies dyspnea Gastrointestinal Gastrointestinal: Reports system reviewed and no additional complaints, except as documented, Reports as per HPI, Reports abdominal pain, Reports diarrhea, Reports nausea and Reports vomiting Neurologic Neurologic: Reports system reviewed and no additional complaints, except as documented, Denies confusion, Denies disequilibrium and Denies headache(s) Psychiatric Psychiatric: Denies confusion Past Medical History Past Medical History CARDIAC: Positive Cardiac Disorders; Negative Congestive Heart Failure RESPIRATORY: Negative Chronic Obstructive Pulmonary Disease (COPD) or Asthma GENITOURINARY: Negative Renal Disease ENDOCRINE: Negative Diabetes Mellitus Type 1 or Diabetes Mellitus Type 2 HEMATOLOGIC: Negative Sickle Cell Disease Social History SMOKING STATUS: Current every day smoker ED Exam General Limitations: Present no limitations General appearance: Present alert and in no apparent distress Head Head exam: Present atraumatic Eye Eye exam: Present normal appearance, PERRL and EOMI ENT ENT exam: Present normal exam, normal oropharynx and mucous membranes moist Neck Neck exam: Present normal inspection, full ROM and trachea midline Chest Chest inspection: Present normal inspection and symmetric chest wall rise Respiratory Respiratory exam: Present normal lung sounds bilaterally Cardiovascular Cardiovascular exam: Present regular rate, normal rhythm and normal heart sounds Abdominal Exam Abdominal exam: Present soft, tenderness and normal bowel sounds Abdominal tenderness: Present mild Extremities Exam Extremities exam: Present normal inspection and full ROM Back Exam Back exam: Present normal inspection and full ROM Neurological Exam Neurological exam: Present alert, oriented X3 and CN II-XII intact Psychiatric Psychiatric exam: Present normal affect and normal mood Skin Skin exam: Present warm, dry, intact and normal color Course Quality Measures none Orders Category Date Time Status CT Screening NOW Care 05/17/24 19:37 Active EKG (ED ONLY) *Do not use* NOW Care 05/17/24 19:[address] abdomen pelvis w con Stat Exams 05/17/24 19:37 Taken EKG (ED Only) Stat Exams 05/17/24 19:37 Draft CBC Stat Lab 05/17/24 19:54 Completed Comprehensive Metabolic Panel Stat Lab 05/17/24 19:54 Completed Drug Screen,Urine Stat Lab 05/17/24 20:34 Completed Lipase Stat Lab 05/17/24 19:54 Completed Partial Thromboplastin Time Stat Lab 05/17/24 19:54 Completed Prothrombin Time with INR Stat Lab 05/17/24 19:54 Completed UA, C/S IF [Urinalysis, C/S if Indicated] Stat Lab 05/17/24 20:34 Completed Urine Culture Stat Lab 05/17/24 20:34 Received Famotidine Inj [Pepcid Inj] Med 05/17/24 19:37 Discontinued 20 mg IVP X1 ONE Ketorolac Inj [Toradol Inj] Med 05/17/24 19:38 Discontinued 30 mg IVP X1 ONE Metoclopramide Inj [Reglan Inj] Med 05/17/24 19:37 Discontinued 10 mg IVP X1 ONE Ondansetron Inj [Zofran Inj] Med 05/18/24 01:52 Discontinued 8 mg IV X1 ONE Sodium Chloride 0.9% 1000 ml [Ns] 1,000 ml Med 05/17/24 19:38 Discontinued IV 999 mls/hr Vital Signs Vital signs: Vital Signs Temperature 98.3 F 05/17/24 19:28 Pulse Rate 99 05/17/24 19:28 Respiratory Rate 19 05/17/24 19:28 Blood Pressure 132/93 H 05/17/24 19:28 Pulse Oximetry (%) 97 05/17/24 19:28 Oxygen Delivery Method Room Air 05/17/24 19:28 O2 at 97% on RA and WNLs Nausea/Vomiting/Diarrhea MDM Narrative MDM Narrative:: 38M with history of HTN, cholecystectomy and DVT (taking meds) presents to ED with several days of N/V, gen ab pain/cramping, and non-bloody diarrhea. Patient denies CP and SOB. Physical exam reveals mild gen ab tenderness. Patient is afebrile, calm, and alert. CT minimal gastroenteritis. Minimal leukocytosis. CMP unremarkable. Lipase normal. Meth positive. UA minimal RBCs/WBCs, but patient denies dysuria so will not treat as UTI. Likely viral gastroenteritis. Patient data External records reviewed:: [facility] previous records Clinical information provided by:: patient Social determinants that could affect healthcare access:: substance use Patient has the following chronic illnesses:: HTN, cholecystectomy and DVT (taking meds) How is presenting disease/condition affected by chronic disease/condition?: exacerbated by Evaluation data The following diagnostics were reviewed and interpreted by me:: lab results and radiology exam(s) Lab and/or radiology exams considered but not ordered:: ordered Interpretation Summary: above Medications / Prescriptions Medications / Prescriptions considered but not ordered:: ordered Medication administrations:: Medication Administration History Discontinued Medications Famotidine (Famotidine Inj 10 Mg/Ml Vial 2 Ml) 20 mg IVP X1 ONE Stop: 05/17/24 19:38 Last Admin: 05/18/24 00:02 Dose: 20 mg Documented By: KATIE Sodium Chloride (Ns) 1,000 mls @ 999 mls/hr IV .Q1H1M ONE Stop: 05/17/24 20:38 Last Admin: 05/18/24 00:02 Dose: 999 mls/hr Documented By: KATIE Ketorolac Tromethamine (Ketorolac Inj 30 Mg/Ml Vial) 30 mg IVP X1 ONE Stop: 05/17/24 19:39 Last Admin: 05/18/24 00:00 Dose: 30 mg Documented By: KATIE Metoclopramide HCl (Metoclopramide Inj 5 Mg/Ml Vial 2 Ml) 10 mg IVP X1 ONE; Protocol Stop: 05/17/24 19:38 Last Admin: 05/18/24 00:02 Dose: 10 mg Documented By: KATIE Ondansetron HCl (Ondansetron Inj 2 Mg/Ml Inj 2 Ml) 8 mg IV X1 ONE; Protocol Stop: 05/18/24 01:53 above Consultations Consultation(s) initiated? (list below): No Diagnosis Nausea Differential Diagnosis: traveler's diarrhea, food poisoning, gastroenteritis, clostridium difficile infection, drug-induced nausea and vomiting and dehydration Most likely diagnosis given after review of the tests above:: gastroenteritis Admission Indicated Admission indicated?: not indicated Admission Request Was there a request for admission?: No Disposition Plan Disposition Plan: Discharge Discharge Attestation Discharge Attestation: The patient and all family members were given an opportunity to ask questions and understood the discharge instructions. Discharge instructions specifically effects, indications for sooner follow up or return to the emergency department, and the expected course of current diagnosis. Patient condition: Stable Discharge Plan Plan Patient Disposition: HOME (Self Care) Disposition Comment: Stable Prescriptions/Referrals Prescriptions/Med Rec: New ondansetron 4 mg tablet,disintegrating 4 mg PO Q6H PRN (Reason: nausea and vomiting) Qty: 30 0RF No Action ibuprofen 800 mg tablet 800 mg PO TID PRN (Reason: pain) Qty: 30 0RF lisinopril 30 mg tablet 30 mg PO QDAY Qty: 30 0RF Referrals: No Primary/Family,Physician [Primary Care Provider] - In 1 week Problem List Clinical Impression: Gastroenteritis Patient/Caregiver Discharge Instructions Education Materials: ED Diarrhea, Viral (Adult) Additional Instructions: Please follow-up with PCP within 24-48 hours and return immediately if symptoms worsen. Keep hydrated. Advance diet as tolerated. Print Language: Mongolian Stand Alone Forms: Patient Portal Info Letter MAYA/KAYLIE Supervising Physician MAYA/KAYLIE Supervising Physician: Dr. Bennett
[2024-05-18] VITALS: TEMP 36.6
[2024-05-18] MEDS: KETOROLAC INJ 30 MG/ML VIAL IVP
[2024-05-18] MEDS: SODIUM CHLORIDE 0.9% 1000 ML 1,000 ML 999 ML IV (00:02)
[2024-05-18] MEDS: FAMOTIDINE INJ 10 MG/ML VIAL 2 ML 20 MG IVP (00:02)
[2024-05-18] MEDS: METOCLOPRAMIDE INJ 5 MG/ML VIAL 2 ML 10 MG IVP (00:02)
[2024-05-18 00:22] VITALS: BP 168/111; PULSE 101; RESP 18; TEMP 36.6; O2SAT 99
--- NOTE | 2024-05-18 01:41 | PRELIM_ITS ---
CT scan of the abdomen and pelvis with intravenous contrast (axial sections with sagittal and coronal reformats). May 18, 2024 0032 hours Clinical History: Abdominal pain Comparison: None Findings: Fatty infiltration of the liver is noted. The gallbladder is surgically absent. The spleen, pancreas, adrenals and kidneys are unremarkable. There are a few small cyst like hypodensities in the lower pole the left kidney, not adequately characterized on this study. Urinary bladder only contains a small amount of fluid and is not adequately distended and is not adequately evaluated. There is layering food/fluid within the stomach. There are scattered small and large bowel fluid which may indicate diarrheal state. There may be mild acute colitis. The appendix appears normal. There is no free intraperitoneal air or fluid. There is no abdominal or pelvic lymphadenopathy. There is minimal subsegmental atelectasis within the lung bases. Bilateral L5 pars defects are noted without anterolisthesis of L5 on S1. Impression: Fatty liver. Cholecystectomy. Scattered small and large bowel fluid may indicate diarrheal state. Possible mild acute colitis. No bowel obstruction. Appendix appears normal. Report Electronically Signed By: Gregorio Osorio 05/18/2024 1:41:05 AM [EST]
[2024-05-18] MEDS: ONDANSETRON INJ 2 MG/ML INJ 2 ML 8 MG IV (03:38)
[2024-05-18 03:40] VITALS: BP 129/94; PULSE 84; RESP 18; TEMP 36.6; O2SAT 98
== END 2024-05-18 04:16 | disposition home or self-care (01) ==
PROVIDERS: Nurse Practitioner Family; Emergency Provider Emergency Medicine
DX: K52.9 Noninfective gastroenteritis and colitis, unspecified (principal); R00.0 Tachycardia, unspecified; I10 Essential (primary) hypertension; F17.210 Nicotine dependence, cigarettes, uncomplicated
CPT/HCPCS: 36415; 74177; 80053; 80307; 81001; 83690; 85025; 85610; 85730; 87086; 93005; 96361; 96374; 96375; 99285; A4649; J1885; J2405; J2765; J3490; J7030; Q9967

== ENCOUNTER 2024-06-11 23:38 | Emergency (ER) | payer MEDICAID, SELFPAY ==
[2024-06-11 23:38] VITALS: BMI 43.4
[2024-06-12 00:17] VITALS: BP 155/91; PULSE 113; RESP 19; TEMP 36.9; O2SAT 98
--- NOTE | 2024-06-12 01:56 | PD.EDRME ---
Rapid Medical Screening Exam RME Arrival date/time: 06/11/24 23:38 38M with history of HTN presents ot ED with 4 days of cough and sore throat. Chief Complaint: Dental/Oral/Throat Time Seen by Provider: 06/12/24 00:17 Vital signs: Vital Signs Temperature 98.4 F 06/12/24 00:17 Pulse Rate 113 H 06/12/24 00:17 Respiratory Rate 19 06/12/24 00:17 Blood Pressure 155/91 H 06/12/24 00:17 Pulse Oximetry (%) 98 06/12/24 00:17 Oxygen Delivery Method Room Air 06/12/24 00:17
--- NOTE | 2024-06-12 01:57 | PC.NURSE ---
NO ANSWER AT ER LOBBY OR OUTSIDE ER TO BE SWAB FOR STREP.
--- NOTE | 2024-06-12 02:10 | PC.NURSE ---
NO ANSWER AT ER LOBBY OR OUTSIDE ER.
== END 2024-06-12 02:10 | disposition left against medical advice (07) ==
LOC: SERX 06-12 03:09
PROVIDERS: Emergency Provider Emergency Medicine; PCP Physician Assistant
DX: R05.9 Cough, unspecified (principal); J02.9 Acute pharyngitis, unspecified; I10 Essential (primary) hypertension; Z53.29 Procedure and treatment not carried out because of patient's decision for other reasons
CPT/HCPCS: 87400; 87651; 99281

== ENCOUNTER 2024-08-05 23:06 | Emergency (ER) | payer MEDICAID, SELFPAY ==
[2024-08-05 23:07] VITALS: BMI 50.2
[2024-08-06 00:23] VITALS: BP 167/100; BP 168/139; PULSE 95; RESP 20; TEMP 36.6; O2SAT 99
--- NOTE | 2024-08-06 00:58 | PD.EDRME ---
Rapid Medical Screening Exam RME Arrival date/time: 08/05/24 23:06 Chief Complaint: Extremity Injury, Lower Time Seen by Provider: 08/05/24 23:47 Vital signs: Vital Signs Temperature 97.9 F 08/06/24 00:23 Pulse Rate 95 08/06/24 00:23 Respiratory Rate 20 08/06/24 00:23 Blood Pressure 168/139 H 08/06/24 00:23 Pulse Oximetry (%) 99 08/06/24 00:23 Oxygen Delivery Method Room Air 08/06/24 00:23 Vital signs reviewed by provider: Yes RME Narrative: 38-year-old male presents to the ED with complaint of bilateral lower extremity swelling as well as severe pain all over his body and tingling to his hands and feet. Past medical history includes lower extremity DVT, diagnosed in April, for which he took a medication for 4 months only. Labs ordered and pending. I have greeted and performed a focused initial assessment of this patient. A comprehensive ED assessment and evaluation of the patient, analysis of all test results, and completion of the medical decision making process will be conducted by additional ED providers.
[2024-08-06] MEDS: ACETAMINOPHEN 500 MG TABLET 1000 MG PO (01:06)
--- NOTE | 2024-08-06 02:42 | PC.NURSE ---
na when called to come back to room @ [phone]
--- NOTE | 2024-08-06 03:17 | PC.NURSE ---
na @ [phone], [phone], [phone] when called for room pt eloped the ER.
== END 2024-08-06 03:17 | disposition left against medical advice (07) ==
PROVIDERS: Emergency Provider Emergency Medicine
DX: M79.89 Other specified soft tissue disorders (principal); R52 Pain, unspecified; R20.2 Paresthesia of skin; Z86.718 Personal history of other venous thrombosis and embolism; Z53.29 Procedure and treatment not carried out because of patient's decision for other reasons
CPT/HCPCS: 80053; 85025; 85652; 86140; 99281; A9270

== ENCOUNTER 2024-10-28 05:40 | Emergency (ER) | payer MEDICAID, SELFPAY ==
[2024-10-28 05:45] VITALS: BP 185/132; PULSE 112; RESP 20; TEMP 36.5; O2SAT 97; BMI 40.7
--- NOTE | 2024-10-28 05:54 | XR_ITS ---
Examination: AP chest single view TECHNIQUE: AP portable upright chest single view Date and time: October 28, 2024, 0601 hours INDICATIONS: Chest pain today. FINDINGS: No significant cardiac enlargement. Mild vascular congestion. Suspicious for 6 mm pulmonary nodule right upper lobe No lobar pneumonia or pulmonary edema IMPRESSION: Recommend AP lordotic chest follow-up to exclude 6 mm pulmonary nodule right upper lobe.
[2024-10-28 06:34] VITALS: PULSE 96; RESP 25
--- NOTE | 2024-10-28 06:35 | PD.EDCHEST ---
ED Chest Pain RME/HPI General Chief Complaint: Chest Pain Stated Complaint: CHEST PAIN Time Seen by Provider: 10/28/24 06:35 Arrival date/time: 10/28/24 05:40 RME / HPI RME / HPI narrative: DR. MESA MAIN ED EVALUATION: 39-year-old male presents to the Emergency Department with complaint of chest pain, initial complaint. History is limited due to altered mental status. Methamphetamine was found in the patient?s pockets during evaluation, a large amount. Later at approximately 0700 hours, the patient refused medical evaluation and became upset after security confiscated his methamphetamine. The nurse reported that the patient tried swinging at the staff. He subsequently left the Emergency Department. Related Data Previous Rx's ?Medication ?Instructions ?Recorded ibuprofen 800 mg tablet 800 mg PO TID PRN pain #30 tabs 07/20/22 lisinopril 30 mg tablet 30 mg PO QDAY #30 tabs 02/18/24 ondansetron 4 mg disintegrating 4 mg PO Q6H PRN nausea and 05/18/24 tablet vomiting #30 tabs Allergies Allergy/AdvReac Type Severity Reaction Status Date / Time No Known Allergies Allergy Verified 06/11/24 23:40 Review of Systems Review of Systems Systems Reviewed: All systems reviewed, normal except as documented Past Medical History Past Medical History CARDIAC: Positive Cardiac Disorders and Hypertension Social History SMOKING STATUS: Current every day smoker SUBSTANCE USE: methamphetamine ED Exam Narrative Physical exam: Initial GENERAL APPEARANCE:? alert and oriented, well-developed, well-nourished, no acute distress, obese, diaphoretic, sleeping with mild snoring respirations HEENT: normocephalic, atraumatic; pupils 2-3 mm and reactive NECK: supple LUNGS: no respiratory distress, normal effort HEART: good peripheral perfusion ABDOMEN: non distended EXTREMITIES:? 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 Care 10/28/24 05:54 Completed Continuous Pulse Oximetry ONCE Care 10/28/24 05:54 Completed EKG (ED ONLY) *Do not use* NOW Care 10/28/24 05:46 Completed Insert IV STAT Care 10/28/24 05:54 Completed EKG (ED Only) Stat Exams 10/28/24 05:46 Ordered XR chest 1V portable Stat Exams 10/28/24 05:54 Completed Alcohol, Blood Medical Stat Lab 10/28/24 06:28 Completed B-Type Natriuretic Peptide Stat Lab 10/28/24 06:28 Completed CBC Stat Lab 10/28/24 06:28 Completed Comprehensive Metabolic Panel Stat Lab 10/28/24 06:28 Completed Magnesium Stat Lab 10/28/24 06:28 Completed Troponin I Stat Lab 10/28/24 06:28 Completed Oxygen Delivery NOW RT 10/28/24 05:54 Completed Reevaluation(s) Reevaluation #1: At approximately 0700 hours, the patient became upset after security confiscated his methamphetamine. He subsequently left the Emergency Department. Time: 07:00 Reevaluation #2: Patient got arrested here at 0720 hours and now he is back for medical clearance. Time: 07:20 Reevaluation #3: At 0830 hours, we were going to discharge the patient to senior care but the patient is acting up. Acting erratic and banging his head, so they returned for treatment and clearance. Time: 08:30 Vital Signs Vital signs: Vital Signs Temperature 97.7 F 10/28/24 05:45 Pulse Rate 112 H 10/28/24 05:45 Respiratory Rate 20 10/28/24 05:45 Blood Pressure 185/132 H 10/28/24 05:45 Pulse Oximetry (%) 97 10/28/24 05:45 Oxygen Delivery Method Room Air 10/28/24 05:45 Chest Pain MDM Narrative MDM Narrative:: I, Cami Holder, am scribing for and in the presence of Dr. Mesa. Patient data External records reviewed:: [facility] previous records Clinical information provided by:: patient Social determinants that could affect healthcare access:: substance use Patient has the following chronic illnesses:: hypertension, cholecystectomy How is presenting disease/condition affected by chronic disease/condition?: exacerbated by Evaluation data The following diagnostics were reviewed and interpreted by me:: lab results, radiology exam(s) and EKG tracing(s) Lab and/or radiology exams considered but not ordered:: none Interpretation Summary: My interpretation: EKG performed at 0545 hours, sinus tachycardia, rate 114, Q wave in V1, notched R wave in lead 3 and V2 Procedure(s): XR chest 1V portable Accession Number(s): [id number] cc: Tuan Esparza MD; NO PRIMARY/FAMILY,PHYSICIAN; Christine Mesa MD~ Examination: AP chest single view TECHNIQUE: AP portable upright chest single view Date and time: October 28, 2024, 0601 hours INDICATIONS: Chest pain today. FINDINGS: No significant cardiac enlargement. Mild vascular congestion. Suspicious for 6 mm pulmonary nodule right upper lobe No lobar pneumonia or pulmonary edema IMPRESSION: Recommend AP lordotic chest follow-up to exclude 6 mm pulmonary nodule right upper lobe. Dictated By: Tuan Esparza MD Medications / Prescriptions Medications or Prescriptions considered but not ordered:: none Medication administrations:: see above if any Consultations Consultation(s) initiated? (list below): No Diagnosis Chest Pain Differential Diagnosis: other (methamphetamine intoxication, acute coronary syndrome, and substance-induced psychosis) Most likely diagnosis given after review of the tests above:: Medical clearance for incarceration Altered behavior Behavior change due to substance use Admission Indicated Admission indicated?: not indicated Admission Request Was there a request for admission?: No Disposition Plan Disposition Plan: other (specify) (Patient eloped.) Discharge Plan Plan Patient Disposition: Senior Care/Court/Law Discharge Disposition comment: Okay to book Patient condition on transfer: Stable Prescriptions/Referrals Prescriptions/Med Rec: No Action ondansetron 4 mg tablet,disintegrating 4 mg PO Q6H PRN (Reason: nausea and vomiting) Qty: 30 0RF ibuprofen 800 mg tablet 800 mg PO TID PRN (Reason: pain) Qty: 30 0RF lisinopril 30 mg tablet 30 mg PO QDAY Qty: 30 0RF Referrals: No Primary/Family,Physician [Primary Care Provider] - In 1 week Problem List Clinical Impression: Medical clearance for incarceration, Altered behavior, Behavior change due to substance use Patient/Caregiver Discharge Instructions Education Materials: ED Drug Abuse Print Language: German
[2024-10-28 06:44] VITALS: BP 141/99; RESP 18; O2SAT 94
[2024-10-28 06:45] LABS: Basophils # (Auto) 0.1 Thou/mm3 (0.0-0.2); Basophils % (Auto) 1 % (0-2.5); Eosinophils # (Auto) 0.3 Thou/mm3 (0.0-0.5); Eosinophils % (Auto) 2 % (0-10); Hematocrit 45.7 % (41.0-53.0); Hemoglobin 15.5 g/dL (13.5-16.0); Immature Granulocytes Auto 0.06 Thou/mm3 (0.00-0.00); Lymphocytes # (Auto) 3.6 Thou/mm3 (1.0-4.8); Lymphocytes % (Auto) 27 % (10-50); Mean Corpuscular HGB Conc 33.9 g/dl (31.0-37.0); Mean Corpuscular Hemoglobin 29.7 pg (25.0-35.0); Mean Corpuscular Volume 88 fL (80-100); Monocytes # (Auto) 0.8 Thou/mm3 (0.0-0.8); Monocytes % (Auto) 6 % (0-12); Neutrophils # (Auto) 8.6 Thou/mm3 (1.8-7.7); Neutrophils % (Auto) 64 % (37-80); Nucleated Red Blood Cell # 0.00 Thou/mm3 (0.00-0.00); Nucleated Red Blood Cell % 0 /100 WBC (0); Platelet Count 262 Thou/mm3 (140-440); RDW Standard Deviation 46.7 fL (35.1-43.9); Red Blood Count 5.22 Miln/mm3 (4.50-5.90); White Blood Count 13.5 Thou/mm3 (3.8-10.6)
[2024-10-28 07:02] LABS: B-Type Natriuretic Peptide < 20 pg/mL (0-100)
[2024-10-28 07:04] LABS: Alanine Aminotransferase 34 U/L (10-49); Albumin, Serum 4.6 gm/dL (3.5-5.0); Albumin/Globulin Ratio 1.7 (1.2-2.2); Alcohol, Blood Medical 24.1 mg/dL (0-10.0); Alkaline Phosphatase 81 U/L (46-116); Anion Gap 9 (7-16); Aspartate Amino Transferase 18 U/L (0-34); BUN/Creatinine Ratio 6 Ratio (12-20); Bilirubin,Total 0.5 mg/dL (0.3-1.2); Blood Urea Nitrogen 7 mg/dL (9-23); Calcium 8.9 mg/dL (8.3-10.6); Calcium (Corrected) 8.9 mg/dL (8.5-10.1); Carbon Dioxide 23.6 mMol/L (20.0-31.0); Chloride 109 mMol/L (98-107); Creatinine (Component) 1.1 mg/dL (0.6-1.3); Estimated Creatinine Clearance 128.9 mL/min (>60); Globulin 2.7 gm/dL (2.3-3.5); Glucose 95 mg/dL (74-106); Magnesium 1.6 mg/dL (1.6-2.6); Osmolality,Calculated 281 (275-295); Potassium 3.4 mMol/L (3.4-5.1); Sodium 142 mMol/L (136-145); Total Protein 7.3 gm/dL (5.7-8.2); Troponin I < 0.020 ng/mL (0.0-0.045); eGFR > 60 See Note
--- NOTE | 2024-10-28 07:05 | PC.NURSE ---
Patient left ED under observation of security. Bag of white crystal powder retained by security and not returned to patient after being found in patient's pocket. Code esquivel canceled.
--- NOTE | 2024-10-28 07:25 | PC.NURSE ---
[employer] arrived on scene and bag of crystal powder handed to [employer] by security. Patient apprehended by [employer] and brought back into ED.
== END 2024-10-28 08:15 ==
PROVIDERS: Emergency Provider Emergency Medicine
DX: Z02.89 Encounter for other administrative examinations (principal); R40.4 Transient alteration of awareness; R07.9 Chest pain, unspecified; R00.0 Tachycardia, unspecified; I10 Essential (primary) hypertension; F17.210 Nicotine dependence, cigarettes, uncomplicated
CPT/HCPCS: 36415; 71045; 80053; 80307; 80320; 81001; 83735; 83880; 84484; 85025; 93005; 99283; G0480

== ENCOUNTER 2024-10-28 08:33 | Emergency (ER) | payer MEDICAID, SELFPAY ==
[2024-10-28 08:52] VITALS: BP 177/119; PULSE 133; RESP 20; TEMP 36.7; O2SAT 98
[2024-10-28] MEDS: DIAZEPAM INJ 5 MG/ML VIAL 2 ML 10 MG IM (08:59)
[2024-10-28] MEDS: HALOPERIDOL LACT INJ 5 MG/ML VIAL IM (09:07)
[2024-10-28 09:34] VITALS: BMI 41.5
[2024-10-28 11:15] VITALS: BP 191/118; PULSE 113; RESP 18; TEMP 36.9; O2SAT 93
--- NOTE | 2024-10-28 11:48 | EDNOTE_ITS ---
ED Medical Clearance RME/HPI General Chief complaint: Medical Clearance Stated complaint: CARE HOME CHECK Time Seen by Provider: 10/28/24 08:34 Arrival date/time: 10/28/24 08:33 RME / HPI RME / HPI Narrative: DR. MESA MAIN ED EVALUATION: 39-year-old male came back to the Emergency Department after he got arrested here at 0830 hours. Patient was discharged for correction but patient acting up. Acting erratic and banging his head, so they returned for treatment and clearance. Earlier today he has chest pain and methamphetamine was found in the patient?s pockets during evaluation, a large amount. See previous note for details. Related Information Previous Rx's ?Medication ?Instructions ?Recorded ibuprofen 800 mg tablet 800 mg PO TID PRN pain #30 t abs 07/20/22 lisinopril 30 mg tablet 30 mg PO QDAY #30 tabs 02/17 ondansetron 4 mg disintegrating 4 mg PO Q6H PRN nausea and 05/18/24 tablet vomiting #30 tabs Allergies Allergy/AdvReac Type Severity Reaction Status Date / Time No Known Allergies Allergy Verified 06/11/24 23:40 Review of Systems Review of Systems Systems Reviewed: All systems reviewed, normal except as documented Past Medical History Past Medical History CARDIAC: Positive Cardiac Disorders and Hypertension Social History SMOKING STATUS: Current every day smoker SUBSTANCE USE: methamphetamine ED Exam Narrative Physical exam: GENERAL APPEARANCE:? alert and oriented, well-developed, well-nourished, no acute distress, hands cuffed to the back, aggressive HEENT: abrasion of face; pupils 2-3 mm and reactive NECK: supple LUNGS: no respiratory distress, normal effort HEART: good peripheral perfusion ABDOMEN: non distended EXTREMITIES:? atraumatic NEUROLOGIC: awake; alert and oriented; normal gait PSYCHIATRIC: aggressive, limited patient is not cooperative SKIN: warm, dry, normal color; no rashes Course Quality Measures none Orders Category Date Time Status Diazepam Inj [Valium Inj] Med 10/28/24 08:43 Discontinued 10 mg IM X1 ONE DiphenhydrAMINE INJ [Benadryl Inj] Med 10/28/24 08:33 Discontinued 50 mg IM X1 ONE Haloperidol Lactate [Haldol Inj] Med 10/28/24 08:33 Discontinued 5 mg IM X1 ONE LORazepam [Ativan Inj] Med 10/28/24 08:33 Discontinued 2 mg IM X1 ONE Vital Signs Vital signs: Vital Signs Temperature 98.0 F 10/28/24 08:52 Pulse Rate 133 H 10/28/24 08:52 Respiratory Rate 20 10/28/24 08:52 Blood Pressure 177/119 H 10/28/24 08:52 Pulse Oximetry (%) 98 10/28/24 08:52 Oxygen Delivery Method Room Air 10/28/24 08:52 Medical Clearance MDM Narrative MDM Narrative:: ICami am scribing for and in the presence of Dr. Mesa. Patient data External records reviewed:: [facility] previous records Clinical information provided by:: patient and law enforcement Social determinants that could affect healthcare access:: substance use Patient has the following chronic illnesses:: hypertension, cholecystectomy How is presenting disease/condition affected by chronic disease/condition?: uneffected by Evaluation data The following diagnostics were reviewed and interpreted by me:: other (specify) (none) Lab and/or radiology exams considered but not ordered:: none Interpretation Summary: n/a Medications / Prescriptions Medications or Prescriptions considered but not ordered:: none Medication administrations:: Medication Administration History Discontinued Medications Diazepam (Diazepam Inj 5 Mg/Ml Vial 2 Ml) 10 mg IM X1 ONE Stop: 10/28/24 08:44 Last Admin: 10/28/24 08:59 Dose: 10 mg Documented By: CAMILLA Diphenhydramine HCl (Diphenhydramine Inj 50 Mg/Ml Vial) 50 mg IM X1 ONE Stop: 10/28/24 08:34 Last Admin: 10/28/24 09:03 Dose: 50 mg Documented By: CAMILLA Haloperidol Lactate (Haloperidol Lact Inj 5 Mg/Ml Vial) 5 mg IM X1 ONE Stop: 10/28/24 08:34 Last Admin: 10/28/24 09:07 Dose: 5 mg Documented By: CAMILLA Lorazepam (Lorazepam 2 Mg/Ml Vial) 2 mg IM X1 ONE Stop: 10/28/24 08:34 Last Admin: 10/28/24 08:59 Dose: Not Given Documented By: CAMILLA Non-Admin Reason: Cancelled by Provider see above Consultations Consultation(s) initiated? (list below): No Diagnosis Medical Clearance Differential Diagnosis: other (Methamphetamine intoxication, head trauma due to self-harm, and acute psychosis.) Most likely diagnosis given after review of the tests above:: Medical clearance for incarceration Abrasion of face Behavior change due to substance use Admission Indicated Admission indicated?: not indicated Admission Request Was there a request for admission?: No Disposition Plan Disposition Plan: Discharge (to correction) Discharge Attestation Discharge Attestation: The patient and all family members were given an opportunity to ask questions and understood the discharge instructions. Discharge instructions specifically effects, indications for sooner follow up or return to the emergency department, and the expected course of current diagnosis. Patient condition: Stable Discharge Plan Plan Patient Disposition: Half-Way/Court/Law Discharge Disposition comment: Okay to book Patient condition on transfer: Stable Prescriptions/Referrals Prescriptions/Med Rec: No Action ondansetron 4 mg tablet,disintegrating 4 mg PO Q6H PRN (Reason: nausea and vomiting) Qty: 30 0RF ibuprofen 800 mg tablet 800 mg PO TID PRN (Reason: pain) Qty: 30 0RF lisinopril 30 mg tablet 30 mg PO QDAY Qty: 30 0RF Referrals: No Primary/Family,Physician [Primary Care Provider] - In 1 week Problem List Clinical Impression: Medical clearance for incarceration, Abrasion of face, Behavior change due to substance use Patient/Caregiver Discharge Instructions Education Materials: ED Abrasions, ED Drug Abuse Print Language: Filipino
[2024-10-28 13:03] VITALS: BP 141/103; PULSE 102; RESP 20; O2SAT 95
[2024-10-28 13:45] VITALS: BP 169/78; PULSE 92; RESP 18; TEMP 36.9; O2SAT 96
== END 2024-10-28 14:24 ==
PROVIDERS: Emergency Provider Emergency Medicine
DX: Z02.89 Encounter for other administrative examinations (principal); S00.81XA Abrasion of other part of head, initial encounter; F19.90 Other psychoactive substance use, unspecified, uncomplicated; W22.09XA Striking against other stationary object, initial encounter
CPT/HCPCS: 80307; 96372; 99283; J1200; J1630; J3360

== ENCOUNTER 2024-12-18 11:08 | Emergency (ER) | payer MEDICAID, SELFPAY ==
[2024-12-18 11:31] VITALS: BP 184/117; PULSE 109; RESP 18; TEMP 36.9; O2SAT 99; BMI 48.8
[2024-12-18 11:46] VITALS: BP 172/110; PULSE 110
[2024-12-18] MEDS: KETOROLAC INJ 30 MG/ML VIAL IM (11:48)
[2024-12-18 12:24] LABS: Basophils # (Auto) 0.1 Thou/mm3 (0.0-0.2); Basophils % (Auto) 1 % (0-2.5); Eosinophils # (Auto) 0.3 Thou/mm3 (0.0-0.5); Eosinophils % (Auto) 3 % (0-10); Hematocrit 46.2 % (41.0-53.0); Hemoglobin 15.2 g/dL (13.5-16.0); Immature Granulocytes Auto 0.06 Thou/mm3 (0.00-0.00); Lymphocytes # (Auto) 2.8 Thou/mm3 (1.0-4.8); Lymphocytes % (Auto) 26 % (10-50); Mean Corpuscular HGB Conc 32.9 g/dl (31.0-37.0); Mean Corpuscular Hemoglobin 29.4 pg (25.0-35.0); Mean Corpuscular Volume 89 fL (80-100); Monocytes # (Auto) 0.7 Thou/mm3 (0.0-0.8); Monocytes % (Auto) 6 % (0-12); Neutrophils # (Auto) 6.8 Thou/mm3 (1.8-7.7); Neutrophils % (Auto) 63 % (37-80); Nucleated Red Blood Cell # 0.00 Thou/mm3 (0.00-0.00); Nucleated Red Blood Cell % 0 /100 WBC (0); Platelet Count 272 Thou/mm3 (140-440); RDW Standard Deviation 47.2 fL (35.1-43.9); Red Blood Count 5.17 Miln/mm3 (4.50-5.90); White Blood Count 10.8 Thou/mm3 (3.8-10.6)
[2024-12-18 12:43] LABS: Alanine Aminotransferase 30 U/L (10-49); Albumin, Serum 4.6 gm/dL (3.5-5.0); Albumin/Globulin Ratio 1.8 (1.2-2.2); Alkaline Phosphatase 79 U/L (46-116); Anion Gap 7 (7-16); Aspartate Amino Transferase 18 U/L (0-34); BUN/Creatinine Ratio 12 Ratio (12-20); Bilirubin,Total 0.5 mg/dL (0.3-1.2); Blood Urea Nitrogen 12 mg/dL (9-23); Calcium 9.5 mg/dL (8.3-10.6); Calcium (Corrected) 9.5 mg/dL (8.5-10.1); Carbon Dioxide 28.5 mMol/L (20.0-31.0); Chloride 106 mMol/L (98-107); Creatinine (Component) 1.0 mg/dL (0.6-1.3); Estimated Creatinine Clearance 152.5 mL/min (>60); Globulin 2.5 gm/dL (2.3-3.5); Glucose 98 mg/dL (74-106); Magnesium 1.8 mg/dL (1.6-2.6); Osmolality,Calculated 280 (275-295); Potassium 4.1 mMol/L (3.4-5.1); Sodium 141 mMol/L (136-145); Total Protein 7.1 gm/dL (5.7-8.2); eGFR > 60 See Note
--- NOTE | 2024-12-18 13:07 | EDNOTE_ITS ---
<Statement entered by Christine Mesa MD - 01/06/25 06:08> As co-signing physician, I was present and available for consult prn. I concur with the plan and care as documented by the midlevel provider. Upper Extremity Injury RME/HPI General Chief Complaint: Extremity Injury, Upper Stated Complaint: BILATERAL HAND PAIN, LEG CRAMPING Time Seen by Provider: 12/18/24 11:36 Arrival date/time: 12/18/24 11:08 39-year-old male presents to the emergency department today for complaints of bi lateral hand pain ongoing for the last 6 to 7 months reports no fever nausea vomiting headache dizziness weakness. Limitations: no limitations Related Data Previous Rx's ?Medication ?Instructions ?Recorded ibuprofen 800 mg tablet 800 mg PO TID PRN pain #30 t abs 07/20/22 lisinopril 30 mg tablet 30 mg PO QDAY #30 tabs 02/17 ondansetron 4 mg disintegrating 4 mg PO Q6H PRN nausea and 05/18/24 tablet vomiting #30 tabs cyclobenzaprine 10 mg tablet 10 mg PO TID PRN muscle s pasm 10 12/18/24 days #30 tab-caps ibuprofen 800 mg tablet 800 mg PO TID PRN pain #30 t abs 12/18/24 Allergies Allergy/AdvReac Type Severity Reaction Status Date / Time No Known Allergies Allergy Verified 06/11/24 23:40 Review of Systems Review of Systems Systems Reviewed: All systems reviewed, normal except as documented Constitutional Constitutional: Reports system reviewed and no additional complaints, except as documented, Denies fever(s) and Denies headache(s) Eyes Eyes: Reports system reviewed and no additional complaints, except as documented and Denies blurry vision ENT Ears, Nose, Mouth, and Throat: Reports system reviewed and no additional complaints, except as documented, Denies headache(s), Denies nasal congestion and Denies nasal discharge Cardiovascular Cardiovascular: Reports system reviewed and no additional complaints, except as documented, Denies chest pain and Denies dyspnea Respiratory Respiratory: Reports system reviewed and no additional complaints, except as documented, Denies chest congestion, Denies cough and Denies dyspnea Gastrointestinal Gastrointestinal: Reports system reviewed and no additional complaints, except as documented and Denies abdominal pain Musculoskeletal Musculoskeletal: Reports system reviewed and no additional complaints, except as documented and Reports other (Bilateral hand pain) Integumentary/Breasts Skin/Breast: Reports system reviewed and no additional complaints, except as documented and Denies rash Neurologic Neurologic: Reports system reviewed and no additional complaints, except as documented, Reports as per HPI and Denies headache(s) Past Medical History Past Medical History CARDIAC: Positive Cardiac Disorders and Hypertension; Negative Congestive Heart Failure RESPIRATORY: Negative Chronic Obstructive Pulmonary Disease (COPD) or Asthma GENITOURINARY: Negative Renal Disease ENDOCRINE: Negative Diabetes Mellitus Type 1 or Diabetes Mellitus Type 2 HEMATOLOGIC: Negative Sickle Cell Disease Social History SMOKING STATUS: Current every day smoker SUBSTANCE USE: methamphetamine ED Exam General Limitations: Present no limitations General appearance: Present alert and in no apparent distress Head Head exam: Present atraumatic Eye Eye exam: Present normal appearance, PERRL and EOMI ENT ENT exam: Present normal exam, normal oropharynx and mucous membranes moist Neck Neck exam: Present normal inspection, full ROM and trachea midline Chest Chest inspection: Present normal inspection and symmetric chest wall rise Respiratory Respiratory exam: Present normal lung sounds bilaterally Cardiovascular Cardiovascular exam: Present regular rate, normal rhythm and normal heart sounds Abdominal Exam Abdominal exam: Present soft and normal bowel sounds Extremities Exam Extremities exam: Present normal inspection and full ROM Back Exam Back exam: Present normal inspection and full ROM Neurological Exam Neurological exam: Present alert, oriented X3 and CN II-XII intact Psychiatric Psychiatric exam: Present normal affect and normal mood Skin Skin exam: Present warm, dry, intact and normal color Course Quality Measures none Orders Category Date Time Status CBC Stat Lab 12/18/24 11:55 Completed CMP [Comprehensive Metabolic Panel] Stat Lab 12/18/24 11:55 Completed Mag [Magnesium] Stat Lab 12/18/24 11:55 Completed Ketorolac Inj [Toradol Inj] Med 12/18/24 11:36 Discontinued 30 mg IM X1 ONE cloNIDine HCL [Catapres] Med 12/18/24 11:34 Discontinued 0.2 mg PO X1 ONE Vital Signs Vital signs: Vital Signs Temperature 98.4 F 12/18/24 11:31 Pulse Rate 109 H 12/18/24 11:31 Respiratory Rate 18 12/18/24 11:31 Blood Pressure 184/117 H 12/18/24 11:31 Pulse Oximetry (%) 99 12/18/24 11:31 Oxygen Delivery Method Room Air 12/18/24 11:31 O2 saturation 99% room air within normal limits Extremity Injury MDM Narrative MDM Narrative:: 39-year-old male presents to the emergency department today for complaints of bilateral hand pain ongoing for the last 6 to 7 months reports no fever nausea vomiting headache dizziness weakness. On exam patient appears to be agitated/anxious patient is wearing blue hospital gloves Incidentally patient noted to be hypertensive patient does report history of hypertension does not take his medication Patient reports history of methamphetamine use last use he reports was a week ago Patient get medication for blood pressure Attempted to reevaluate patient patient appears of left the Emergency Department Patient data External records reviewed:: [facility] previous records Clinical information provided by:: patient Social determinants that could affect healthcare access:: none Patient has the following chronic illnesses:: See history How is presenting disease/condition affected by chronic disease/condition?: caused by Evaluation data The following diagnostics were reviewed and interpreted by me:: lab results Lab and/or radiology exams considered but not ordered:: Labs obtained Interpretation Summary: Reviewed by me Medications / Prescriptions Medications or Prescriptions considered but not ordered:: Given Medication administrations:: Medication Administration History Discontinued Medications Clonidine (Clonidine Hcl 0.1 Mg Tablet) 0.2 mg PO X1 ONE Stop: 12/18/24 11:35 Last Admin: 12/18/24 11:46 Dose: 0.2 mg Documented By: MIKA Ketorolac Tromethamine (Ketorolac Inj 30 Mg/Ml Vial) 30 mg IM X1 ONE Stop: 12/18/24 11:37 Last Admin: 12/18/24 11:48 Dose: 30 mg Documented By: MIKA Given Consultations Consultation(s) initiated? (list below): No Diagnosis Upper Extremity Injury Differential Diagnosis: other (Hand pain, methamphetamine use, anxiety) Most likely diagnosis given after review of the tests above:: Methamphetamine use hand pain Admission Indicated Admission indicated?: not indicated Admission Request Was there a request for admission?: No Disposition Plan Disposition Plan: Discharge Discharge Attestation Discharge Attestation: The patient and all family members were given an opportunity to ask questions and understood the discharge instructions. Discharge instructions specifically effects, indications for sooner follow up or return to the emergency department, and the expected course of current diagnosis. Patient condition: Stable Discharge Plan Plan Patient Disposition: HOME (Self Care) Discharge Disposition comment: Stable Prescriptions/Referrals Prescriptions/Med Rec: New cyclobenzaprine 10 mg tablet 10 mg PO TID PRN (Reason: muscle spasm) 10 Days Qty: 30 0RF ibuprofen 800 mg tablet 800 mg PO TID PRN (Reason: pain) Qty: 30 0RF No Action ondansetron 4 mg tablet,disintegrating 4 mg PO Q6H PRN (Reason: nausea and vomiting) Qty: 30 0RF ibuprofen 800 mg tablet 800 mg PO TID PRN (Reason: pain) Qty: 30 0RF lisinopril 30 mg tablet 30 mg PO QDAY Qty: 30 0RF Referrals: Antonette Escobar NP [Primary Care Provider] - 12/19/24 Problem List Clinical Impression: Bilateral hand pain, Methamphetamine use Patient/Caregiver Discharge Instructions Education Materials: ED Drug Abuse Additional Instructions: Please follow up with your primary care doctor in the next 24-48hrs for any worsening symptoms return here immediately Print Language: Congolese Stand Alone Forms: Cynthia Award Info., Patient Portal Info Letter PA/OLEOMARGARINE MAKER Supervising Physician PA/OLEOMARGARINE MAKER Supervising Physician: Dr. mesa
--- NOTE | 2024-12-18 14:25 | PC.NURSE ---
PATIENT CALLED THREE TIME FROM [facility]. PATIENT MOTHER WAS HERE AND STATED PATIENT LEFT WITHOUT INTENTION OF RETURNING. MOTHER INFORMED PATIENT WILL NEED TO RETURN IN ORDER TO RECEIVE DC PAPERWORK. MOTHER LEFT FACILITY. PATIENT DID NOT RETURN AND LEFT PRIOR TO RECEIVING DC PAPERWORK
== END 2024-12-18 14:27 | disposition home or self-care (01) ==
PROVIDERS: Nurse Practitioner Primary Care; Emergency Provider Emergency Medicine; PCP Nurse Practitioner Women's Health
DX: M79.642 Pain in left hand (principal); M79.641 Pain in right hand; F15.10 Other stimulant abuse, uncomplicated
CPT/HCPCS: 36415; 80053; 83735; 85025; 96372; 99283; J1885; A9270